=== PATIENT | male | born 1975 | race African-American/Black ===

== ENCOUNTER 2016-08-17 01:41 | Emergency (ER) | payer SELFPAY ==
[~2016-08-17] VITALS: Ht 172.7 cm; Wt 72.6 kg
[2016-08-17 01:55] VITALS: BP 119/69
[2016-08-17] MEDS ORDERED: CYCLOBENZAPRINE 10 MG TABLET. PO ONE (02:15)
[2016-08-17] MEDS ORDERED: ONDANSETRON PF 4 MG/2 ML VIAL. IV ONE (02:15)
[2016-08-17] MEDS ORDERED: HYDROcodone/APAP 5/325MG 1 TAB TABLET PO ONE (02:15)
[2016-08-17] MEDS ORDERED: KETOROLAC 15 MG/ML VIAL. IM ONE (02:15)
[2016-08-17] MEDS ORDERED: diphenhydrAMINE 50 MG/ML VIAL IM ONE (02:15)
[2016-08-17] MEDS ORDERED: predniSONE 10 MG TABLET PO ONE (02:15)
[2016-08-17] MEDS ORDERED: ONDANSETRON ODT 4 MG TAB.RAPDIS. ONE (02:23)
[2016-08-17] MEDS ORDERED: KETOROLAC 60 MG/2 ML INJ FOR OR. INJ ONE (02:30)
[2016-08-17] MEDS ORDERED: KETOROLAC 30 MG/ML INJ FOR OR. INJ ONE (02:30)
[2016-08-17] MEDS ORDERED: IBUP-1007 PO (02:33)
[2016-08-17] MEDS ORDERED: PRED50TA PO (02:33)
[2016-08-17] MEDS ORDERED: DIPH25CA58 PO (02:33)
[2016-08-17] MEDS ORDERED: CYCL10TA2 PO (02:33)
--- NOTE | 2016-08-17 02:34 | PHYS DOC ---
Past Medical History Past Medical History: No Pertinent History Past Surgical History: No Surgical History Alcohol Use: None Drug Use: None Adult General Chief Complaint Chief Complaint: BACK PAIN OR INJURY HPI HPI Patient is a 41 year old gentleman who comes into the ER today complaining of right-sided back pain that started earlier today. Patient reports she's had multiple episodes of the same identical pain however usually resolves on its own without any intervention. Patient comes into the ER today because the pain is not resolved. Patient reports he did not try any medication at home on his own. Patient has a dysuria frequency urgency hematuria. Patient has any fevers shakes chills. Patient has any chest pain or shortness of breath. Patient has any cough. Patient reports no history of hypertension diabetes liver longer kidney problems in the past. Patient has not had any abdominal or chest surgeries in the past. Patient reports he does smoke no alcohol or drugs. Patient is not allergic to any medications. Patient also complaining of a rash to his back to its been itching him. Patient is unclear what he is allergic to. Patient reports that he recently was released from [facility] and he does not do any work currently and he is not sure how he could've injured his back. She reports pain is exacerbated with any Twisting motion of his back or tries to sit up. Patient reports any movement or twisting causes pain to get much worse. Pain does not appear to be colicky in nature. Pain does not change with urination. She has no loss of bowel or bladder function. Patient has no paresthesias to his rectum or perineal area. Physical exam is significant for tenderness to palpation to his right flank region. Patient has no point see spine T-spine or L-spine tenderness to palpation. Patient is neurologically intact. Patient is 5 out of 5 upper and lower extremities s strength. Patient has reproducible pain whenever he twisted his body or when he was trying to sit up. Patient has reproducible pain to palpate his right flank region. Patient's abdomen was soft nontender no rebound or guarding. Patient does not present with any signs or symptoms O be consistent with an acute surgical abdomen. Patient's skin is significant for what appears to be a hive-like rash throughout his body. Patient's workup in ER was unremarkable. Patient was given Toradol, Flexeril, and [place] in the ER to assist him with pain. Patient be discharged home with a prescription for Naprosyn and Flexeril. Patient's rash he was given Benadryl and prednisone. Patient be sent home with a prescription for Benadryl and prednisone which should also help his back a little bit as well too. A/P #1 right sided mechanical back pain. 2 hives with likely allergic reaction/contact dermatitis. Review of Systems Review of Systems Constitutional: Denies fever or chills [] Eyes: Denies change in visual acuity, redness, or eye pain [] All other review systems are negative except as documented in the history of present illness portion. Current Medications Current Medications Current Medications Medications (Trade) Dose Ordered Sig/Adrian Start Time Stop Time Status Last Admin Dose Admin Acetaminophen/ Hydrocodone Bitart (Lortab 5/325) 1 tab 1X ONCE 08/17/16 02:15 08/17/16 02:16 DC 08/17/16 02:48 1 TAB Cyclobenzaprine HCl (Flexeril) 10 mg 1X ONCE 08/17/16 02:15 08/17/16 02:16 DC 08/17/16 02:47 10 MG Diphenhydramine HCl (Benadryl) 50 mg 1X ONCE 08/17/16 02:15 08/17/16 02:16 DC 08/17/16 02:43 50 MG Ketorolac Tromethamine (Toradol For Or Only) 60 mg 1X ONCE 08/17/16 02:30 08/17/16 02:31 DC 08/17/16 02:43 60 MG Ketorolac Tromethamine (Toradol) 60 mg 1X ONCE 08/17/16 02:15 08/17/16 02:16 DC Ondansetron HCl (Zofran Odt) 4 mg 1X ONCE 08/17/16 02:45 08/17/16 02:46 DC 08/17/16 02:38 4 MG Ondansetron HCl (Zofran) 4 mg 1X ONCE 08/17/16 02:15 08/17/16 02:16 DC Prednisone (Prednisone) 40 mg 1X ONCE 08/17/16 02:15 08/17/16 02:16 DC 08/17/16 02:47 40 MG Allergies Allergies Allergies Coded Allergies Type Severity Reaction Last Updated Verified No Known Drug Allergies 08/17/16 No Physical Exam Physical Exam Constitutional: Well developed, well nourished, no acute distress, non-toxic appearance. [] HENT: Normocephalic, atraumatic, bilateral external ears normal, oropharynx moist, no oral exudates, nose normal. [] Eyes: PERRLA, EOMI, conjunctiva normal, no discharge. [] Neck: Normal range of motion, no tenderness, supple, no stridor. [] Cardiovascular:Heart rate regular rhythm, no murmur [] Lungs & Thorax: Bilateral breath sounds clear to auscultation [] Abdomen: Bowel sounds normal, soft, no tenderness, no masses, no pulsatile masses. [] Skin: Warm, dry, Back: Extremities: No tenderness, no cyanosis, no clubbing, ROM intact, no edema. [] Neurologic: Alert and oriented X 3, normal motor function, normal sensory function, no focal deficits noted. [] Psychologic: Affect normal, judgement normal, mood normal. [] Current Patient Data Vital Signs Vital Signs Date Time Temp Pulse Resp B/P (MAP) Pulse Ox O2 Delivery O2 Flow Rate FiO2 08/17/16 02:48 18 98 Room Air 08/17/16 01:55 98.3 99 119/69 (86) 98.3 Lab Values Laboratory Tests Test 08/17/16 02:40 Urine Collection Type Unknown Urine Color Yellow Urine Clarity Clear Urine pH 6.5 Urine Specific Iselin 1.025 Urine Protein 30 mg/dL (NEG-TRACE) Urine Glucose (UA) Negative mg/dL (NEG) Urine Ketones (Stick) Negative mg/dL (NEG) Urine Blood Negative (NEG) Urine Nitrite Negative (NEG) Urine Bilirubin Negative (NEG) Urine Urobilinogen Dipstick 0.2 mg/dL (0.2 mg/dL) Urine Leukocyte Esterase Negative (NEG) Urine RBC 3-5 /HPF (0-2) Urine WBC 1-4 /HPF (0-4) Urine Squamous Epithelial Cells None /LPF Urine Bacteria Few /HPF (0-FEW) Urine Hyaline Casts Occasional /HPF Urine Granular Casts Occasional /HPF Urine Mucus Mod /LPF Urine Sperm Present /HPF EKG EKG [] Radiology/Procedures Radiology/Procedures [] Course & Med Decision Making Course & Med Decision Making Pertinent Labs and Imaging studies reviewed. (See chart for details) [] Dragon Disclaimer Dragon Disclaimer This electronic medical record was generated, in whole or in part, using a voice recognition dictation system. Departure Departure Impression: Primary Impression: Mechanical back pain Additional Impression: Contact dermatitis Disposition: 01 HOME, SELF-CARE Condition: IMPROVED Referrals: NO PCP (PCP) Patient Instructions: Back Pain, Adult, Hives, [id number] Scripts Prednisone (PREDNISONE) 50 Mg Tablet 1 TAB PO DAILY, #5 TAB Prov: NEETA PERRY MD 08/17/16 Ibuprofen (IBUPROFEN) 600 Mg Tablet 600 MG PO PRN Q6HRS Y for PAIN, #20 TAB Prov: NEETA PERRY MD 08/17/16 Cyclobenzaprine Hcl (CYCLOBENZAPRINE HCL) 10 Mg Tablet 10 MG PO TID Y for MUSCLE PAIN, #20 TAB Prov: NEETA PERRY MD 08/17/16 Diphenhydramine Hcl (BENADRYL) 25 Mg Capsule 2 CAP PO Q6HRS Y for ITCHING, #14 CAP 2 Refills Prov: NEETA PERRY MD 08/17/16 Problem Qualifiers Additional Impression: Contact dermatitis Contact dermatitis type: allergic Contact dermatitis trigger: unspecified trigger Qualified Codes: L23.9 - Allergic contact dermatitis, unspecified cause NEETA PERRY MD August 17, 2016 02:34
[2016-08-17] MEDS ORDERED: ONDANSETRON ODT 4 MG TAB.RAPDIS. PO ONE (02:45)
[2016-08-17 03:11] LABS: BILIRUBIN,URINE NEGATIVE (NEG); GLUCOSE,URINE NEGATIVE (NEG); NITRITE,URINE NEGATIVE (NEG); PH,URINE 6.5; PROTEIN,URINE 30 mg/dL (NEG-TRACE); UROBILINOGEN,URINE 0.2 mg/dL (0.2 mg/dL)
[2016-08-17 03:12] LABS: BACTERIA,URINE FEW /HPF (0-FEW); SPERM,URINE PRESENT /HPF
== END 2016-08-17 03:38 | disposition home or self-care (01) ==
LOC: ER 01:41
DX: M54.89 Other dorsalgia (principal); L23.9 Allergic contact dermatitis, unspecified cause; R30.0 Dysuria; R31.9 Hematuria, unspecified; R10.9 Unspecified abdominal pain
CPT/HCPCS: 81001; 96372; 99284; J1200; J1885; J7512; Q0162

== ENCOUNTER 2018-10-12 02:46 | Emergency (ER) | payer SELFPAY ==
[~2018-10-12] VITALS: Ht 172.7 cm; Wt 79.4 kg
[~2018-10-12 02:46] MED LIST: CYCL10TA2 PO; DIPH25CA58 PO; IBUP-1007 PO; PRED50TA PO
[2018-10-12] MEDS ORDERED: KETOROLAC 15 MG/ML VIAL. IV ONE (03:00)
[2018-10-12 03:05] LABS: BASO % 1 % (0-3); EOS # 0.2 x10^3/uL (0.0-0.7); EOS % 4 % (0-3); HEMATOCRIT 42.7 % (39.0-53.0); HEMOGLOBIN 14.8 g/dL (13.0-17.5); LYMPH # 1.4 x10^3/uL (1.0-4.8); LYMPH % 36 % (24-48); MEAN CORPUSCULAR HEMOGLOBIN 32 pg (25-35); MEAN CORPUSCULAR HGB CONC 35 g/dL (31-37); MEAN CORPUSCULAR VOLUME 93 fL (79-100); MONO # 0.4 x10^3/uL (0.0-1.1); MONO % 9 % (0-9); NEUT % 50 % (31-73); PLATELET COUNT 182 x10^3/uL (140-400); RED BLOOD COUNT 4.59 x10^6/uL (4.30-5.70); RED CELL DISTRIBUTION WIDTH 13.9 % (11.5-14.5); WHITE BLOOD COUNT 3.9 x10^3/uL (4.0-11.0)
[2018-10-12 03:14] LABS: CALCIUM 8.6 mg/dL (8.5-10.1); GFR 98.2; POTASSIUM 4.4 mmol/L (3.5-5.1)
[2018-10-12 03:20] LABS: ALBUMIN 3.7 g/dL (3.4-5.0); ALBUMIN/GLOBULIN RATIO 1.1 (1.0-1.7); TOTAL BILIRUBIN 0.3 mg/dL (0.2-1.0); TOTAL PROTEIN 7.2 g/dL (6.4-8.2)
[2018-10-12 03:30] VITALS: BP 133/81
[2018-10-12] MEDS ORDERED: ACETAMINOPHEN 500 MG TABLET PO ONE (03:30)
--- NOTE | 2018-10-12 03:30 | PHYS DOC ---
Past Medical History Past Medical History: No Pertinent History Past Surgical History: No Surgical History Alcohol Use: Heavy Drug Use: None Adult General Chief Complaint Chief Complaint: CHEST PAIN [facility] HPI Patient is a 43 year old [place] male who presents with sharp light intermittent left-sided chest wall pain starting an 18 hours prior to ED arrival. Patient reports brief chest pain episodes lasting to 3 seconds spread out over several hours. Denies shortness breath, fevers chills, nausea vomiting or sweats. Denies leg pain or swelling. No other acute symptoms or complaints. Patient is a current smoker. [] Review of Systems Review of Systems ROS as per HPI All other systems were reviewed and found to be within normal limits, except as documented in this note. Current Medications Current Medications Current Medications Medications (Trade) Dose Ordered Sig/Adrian Start Time Stop Time Status Last Admin Dose Admin Acetaminophen (Tylenol) 1,000 mg 1X ONCE 10/12/18 03:30 10/12/18 03:31 UNV Ketorolac Tromethamine (Toradol 15mg Vial) 15 mg 1X ONCE 10/12/18 03:00 10/12/18 03:01 UNV Allergies Allergies Allergies Coded Allergies Type Severity Reaction Last Updated Verified No Known Drug Allergies 08/17/16 No Physical Exam Physical Exam Constitutional: Well developed, well nourished, no acute distress, non-toxic appearance. [] HENT: Normocephalic, atraumatic, bilateral external ears normal, oropharynx moist, no oral exudates, nose normal. [] Eyes: PERRLA, EOMI, conjunctiva normal, no discharge. [] Neck: Normal range of motion, no tenderness, supple, no stridor. [] Cardiovascular:Heart rate regular rhythm, no murmur [] Lungs & Thorax: Bilateral breath sounds clear to auscultation [] Abdomen: Bowel sounds normal, soft, no tenderness. [] Skin: Warm, dry, no erythema, no rash. [] Back: No tenderness, no CVA tenderness. [] Extremities: No tenderness, no cyanosis, no clubbing, ROM intact, no edema. [] Neurologic: Alert and oriented X 3, normal motor function, normal sensory function, no focal deficits noted. [] Psychologic: Affect normal, judgement normal, mood normal. [] Current Patient Data Vital Signs Vital Signs Date Time Temp Pulse Resp B/P (MAP) Pulse Ox O2 Delivery O2 Flow Rate FiO2 10/12/18 02:50 97.8 82 16 128/91 (103) 98 Room Air 97.8 Lab Values Laboratory Tests Test 10/12/18 02:56 White Blood Count 3.9 x10^3/uL (4.0-11.0) L Red Blood Count 4.59 x10^6/uL (4.30-5.70) Hemoglobin 14.8 g/dL (13.0-17.5) Hematocrit 42.7 % (39.0-53.0) Mean Corpuscular Volume 93 fL (79-100) Mean Corpuscular Hemoglobin 32 pg (25-35) Mean Corpuscular Hemoglobin Concent 35 g/dL (31-37) Red Cell Distribution Width 13.9 % (11.5-14.5) Platelet Count 182 x10^3/uL (140-400) Neutrophils (%) (Auto) 50 % (31-73) Lymphocytes (%) (Auto) 36 % (24-48) Monocytes (%) (Auto) 9 % (0-9) Eosinophils (%) (Auto) 4 % (0-3) H Basophils (%) (Auto) 1 % (0-3) Neutrophils # (Auto) 2.0 x10^3uL (1.8-7.7) Lymphocytes # (Auto) 1.4 x10^3/uL (1.0-4.8) Monocytes # (Auto) 0.4 x10^3/uL (0.0-1.1) Eosinophils # (Auto) 0.2 x10^3/uL (0.0-0.7) Basophils # (Auto) 0.0 x10^3/uL (0.0-0.2) D-Dimer (Sidra) 0.30 ug/mlFEU (0.00-0.50) Sodium Level 141 mmol/L (136-145) Potassium Level 4.4 mmol/L (3.5-5.1) Chloride Level 105 mmol/L (98-107) Carbon Dioxide Level 31 mmol/L (21-32) Anion Gap 5 (6-14) L Blood Urea Nitrogen 13 mg/dL (8-26) Creatinine 1.0 mg/dL (0.7-1.3) Estimated GFR (Cockcroft-Gault) 98.2 BUN/Creatinine Ratio 13 (6-20) Glucose Level 111 mg/dL (70-99) H Calcium Level 8.6 mg/dL (8.5-10.1) Total Bilirubin Pending Aspartate Amino Transferase (AST) Pending Alanine Aminotransferase (ALT) Pending Alkaline Phosphatase Pending Total Protein Pending Albumin Pending Albumin/Globulin Ratio Pending Laboratory Tests 10/12/18 02:56 Laboratory Tests 10/12/18 02:56 EKG EKG [EKG: Reviewed, no acute ST segment elevation.] Radiology/Procedures Radiology/Procedures [CXR: NAD on preliminary ED review] Course & Med Decision Making Course & Med Decision Making Pertinent Labs and Imaging studies reviewed. (See chart for details) [Reproducible chest wall pain, labs, EKG and imaging ] Dragon Disclaimer Dragon Disclaimer This electronic medical record was generated, in whole or in part, using a voice recognition dictation system. Departure Departure Impression: Primary Impression: Pleurisy Disposition: HOME, SELF-CARE Condition: IMPROVED Referrals: NO PCP (PCP) Patient Instructions: Pleurisy, [id number] Additional Instructions: You were evaluated in the ED for chest pain, EKG, lab and imaging studies were performed and are nondiagnostic. Urine exam is consistent with pleurisy which is inflammation lining of the lung. This is treated with Tylenol or ibuprofen for 3-5 days. Please discontinue smoking and follow-up with local primary care physician for reevaluation. Return to the ED if new or worsening symptoms. EZEQUIEL MATAMOROS DO Oct 12, 2018 03:30
--- NOTE | 2018-10-12 08:05 | RAD ---
Exam performed: One view chest. Indication: Chest pain Date of Service: 10/12/2018 2:39 AM Comparison: None available. Single AP upright portable view chest findings: Cardiomediastinal silhouette is within limits of normal. No acute infiltrates, effusion or pneumothorax is detected. The bony structures are normal. Impression: No acute cardiopulmonary process is detected. Electronically signed by: Dana Hughes MD (10/12/2018 8:02 AM) [facility]
--- NOTE | 2018-10-12 15:48 | EKG ---
[facility] [address] [place] [address] Test Date: 2018-10-12 Test Time: 02:49:11 Pat Name: RAVIN BERGMAN Department: Room: Gender: M [employer]: : 1975 Requested By: EZEQUIEL MATAMOROS Order Number: [id number] Reading MD: Measurements Intervals Bee Rate: 67 P: 41 MT: 160 QRS: 53 QRSD: 72 T: 36 QT: 344 QTc: 366 Interpretive Statements SINUS RHYTHM QRS(T) CONTOUR ABNORMALITY CONSIDER ANTEROSEPTAL MYOCARDIAL DAMAGE ST & T ABNORMALITY, CONSIDER RECENT INFERIOR MYOCARDIAL OR PERICARDIAL DAMAGE ABNORMAL ECG RI6.01 Unconfirmed report No previous ECG available for comparison
== END 2018-10-12 03:47 | disposition home or self-care (01) ==
LOC: ER 02:46
DX: R09.1 Pleurisy (principal); F10.20 Alcohol dependence, uncomplicated; Y90.9 Presence of alcohol in blood, level not specified
CPT/HCPCS: 36415; 71045; 80053; 84484; 85025; 85379; 93005; 96374; 99285; J1885